=== PATIENT | female | born 1990 | race Caucasian/White ===

== ENCOUNTER 2019-01-07 03:15 | Emergency (ER) | payer MEDICAID, OTHER ==
[~2019-01-07] VITALS: Ht 162.6 cm; Wt 54.0 kg
[2019-01-07 03:22] VITALS: BP 116/74
[2019-01-07] MEDS ORDERED: DEXT10TA7 PO (03:33)
--- NOTE | 2019-01-07 04:12 | NUR ---
PT D/C WITH D/C SUMMARY. ALL QUESTIONS ANSWERED. PT AMBULATES TO REGISTRATION DESK WITH [facility] FOR D/C HOME. PT DENIES ANY OTHER NEEDS PERTAINING TO THIS VISIT.
--- NOTE | 2019-01-07 04:25 | NUR ---
PT D/C WITH D/C SUMMARY. PT CALLING [facility] FOR TRANSPORT HOME. PT AMBULATES TO REGISTRATION DESK WITH STEADY GAIT FOR D/C HOME. PT DENIES ANY OTHER NEEDS PERTAINING TO THIS VISIT.
== END 2019-01-07 04:27 | disposition home or self-care (01) ==
LOC: ED 04:20
DX: M25.522 Pain in left elbow (principal); F90.9 Attention-deficit hyperactivity disorder, unspecified type
CPT/HCPCS: 99283